=== PATIENT | male | born 1980 | race Caucasian/White ===

== ENCOUNTER 2023-04-06 09:06 | Emergency (ER) | payer OTHER, SELFPAY ==
[2023-04-06 09:08] VITALS: BP 136/78; PULSE 71; RESP 17; RESP 97; TEMP 37.3; O2SAT 97
[2023-04-06] MEDS: DACRIOSE EYE IRRIGATION 118 ML BOTTLE 10 ML EACH EYE (09:15)
[2023-04-06] MEDS: TETRACAINE HCL 0.5% OPHTH SOLN 4 ML BTL 1 DROP EACH EYE (09:15)
[2023-04-06] MEDS: FLUORESCEIN SOD 1 MG/STRIP EACH EYE (09:15)
--- NOTE | 2023-04-06 09:30 | ED.EYEPROB ---
HPI - Eye Problem General Chief complaint: Eye Problems Stated complaint: left eye pain Time Seen by Provider: 04/06/23 09:08 Source: patient Mode of arrival: ambulatory Limitations: no limitations History of Present Illness HPI Narrative: This is a 42-year-old gentleman that presents with left eye irritation with no visual disturbances was welding and felt like a piece of welding material although he was wearing his goggles did penetrate the left, this happened last night and rinsed his eye but still feels like there is a foreign body sensation in the left eye. chief complaint: eye redness and foreign body Onset (ago): day(s) Duration: improved Location: left eye Eye Symptoms: redness and foreign body sensation Place: work Related Data Allergies Allergy/AdvReac Type Severity Reaction Status Date / Time No Known Allergies Allergy Verified 04/06/23 09:08 Review of Systems Review of Systems: All systems reviewed & are unremarkable except as noted in HPI and below PMFSH Past Medical History Medical History Patient denies medical problems Exam Const: General: healthy appearing Nutritional Appearance: well nourished Orientation/consciousness: patient oriented x3 Limitations: no limitations HENMT: Head: normal to inspection Face and sinus: normal facial exam Eyes: Conjunctivae: conjunctival abnormality Pupils: Equal, round and reactive pupils present EOM: EOMs intact bilaterally Direct Ophthalmoscopy: no photophobia Neck: Neck: normal visual inspection Resp: Effort & Inspection: normal respiratory effort Cardio: Rate: regular rate Rhythm: regular rhythm GI: Auscultation: normal bowel sounds Urinary Catheter: Urinary Catheter: patent and draining Skin: General skin exam: normal color Rashes: no rashes Neuro: General: patient oriented x3 Cranial nerves: Yes Nystagmus not present Extrem: General: normal to inspection Psych: Mental Status: mental status grossly normal Course Course Emergency Course: tetracaine was used to numb the left eye and cotton swab I used to thoroughly sweep the inner upper and lower eyelid magnifying lens was used to visualize the eye and no foreign object was visualized. Dextrose some was used to flush the the I and forcing stain was used and there was no foreign object or corneal abrasions visualized. The patient tolerated procedure well and will instill antibiotic eye drop to the left eye. Vital Signs Vital signs: Vital Signs Temperature 37.3 C 04/06/23 09:08 Pulse Rate 71 04/06/23 09:08 Respiratory Rate 17 04/06/23 09:08 Blood Pressure 136/78 04/06/23 09:08 Pulse Oximetry 97 04/06/23 09:08 Oxygen Delivery Room Air 04/06/23 09:08 Temperature 37.3 C 04/06/23 09:08 Pulse Rate 71 04/06/23 09:08 Respiratory Rate 17 04/06/23 09:08 Blood Pressure 136/78 04/06/23 09:08 Pulse Oximetry 97 04/06/23 09:08 Oxygen Delivery Room Air 04/06/23 09:08 Procedures FB Removal Eye Foreign Body #1: Foreign Body Removal Date: 04/06/23 Foreign Body Removal Time: 09:36 Time Out performed: Yes Location: eye (L) Topical anesthetic used: tetracaine Foreign body: other ( No foreign object visualized) Evidence of corneal penetration: No Technique: irrigation, eye wash bottle and cotton tip swab Procedure performed under: direct visualization with magnification Post-procedure medication: ophthalmic antibiotic Patient tolerated procedure: well Foreign Body Removal Narrative: no foreign objects or corneal abrasions visualized Critical Care Time Critical Care Time Critical Care Time: No Discharge Plan Discharge Clinical Impression: Bacterial conjunctivitis Patient Disposition: Home, Self-Care Condition: Stable Instructions: Antibiotic Form, Eye Foreign Body (ED), Conjunctivitis (ED) Additiona
[2023-04-06] MEDS: TETANUS,DIPHTHERIA,AC PERTUSSIS ADULT 0.5 ML (ADACEL) IM (09:43)
[2023-04-06] MEDS: NEOMYCIN/POLYMYXIN/HYDROCORT 7.5 ML EYE DROPS (*BKC) 1 DROP LEFT EYE (09:44)
[2023-04-06 09:49] VITALS: BP 136/78; PULSE 71; RESP 17; TEMP 37.3; O2SAT 97
== END 2023-04-06 09:51 | disposition home or self-care (01) ==
PROVIDERS: Emergency Provider Emergency Medicine
DX: H10.9 Unspecified conjunctivitis (principal); Z23 Encounter for immunization
CPT/HCPCS: 90471; 90715; 99283; A9270

== ENCOUNTER 2024-04-04 01:25 | Emergency (ER) | payer OTHER, SELFPAY ==
[2024-04-04 01:27] VITALS: BP 136/91; PULSE 84; RESP 18; TEMP 36.2; O2SAT 100
--- NOTE | 2024-04-04 01:33 | ED.GENADULT ---
HPI - General Adult General Chief complaint: Allergic Reaction Stated complaint: eye issue History of Present Illness HPI narrative: This is a 43-year-old male presenting with allergic reaction. Patient was out cutting grass and for lid earlier today. He developed some itching over the top of his right arm with some mild erythema. He then took a nap woke up with periorbital edema on the right. No eye pain changes in vision or irritation. Patient has no nausea vomiting diarrhea. No wheezing. No globus sensation or significant wheals/urticaria. Related Data Allergies Allergy/AdvReac Type Severity Reaction Status Date / Time No Known Allergies Allergy Verified 04/04/24 01:32 [facility] Past Medical History Medical History Patient denies medical problems Exam Narrative: APPEARANCE: No apparent distress. Head: atraumatic. EYES: Periorbital edema without significant erythema on the right. Conjunctiva normal. Pupils EDUIN NOSE: Atraumatic NECK: Trachea midline RESPIRATORY: No increased rate of breathing, CTAB CARDIOVASCULAR: RRR, ABDOMINAL: Non-distended MUSCULOSKELETAl: No obvious deformities NEURO: Alert. Moving 4/4 extremities SKIN:: mild area of erythema over the right upper extremity without urticaria or wheals. PSYCHIATRIC: Normal affect Course Vital Signs Vital signs: Vital Signs Temperature 97.2 F L 04/04/24 01:27 Pulse Rate 84 04/04/24 01:27 Respiratory Rate 18 04/04/24 01:27 Blood Pressure 136/91 H 04/04/24 01:27 Pulse Oximetry 100 04/04/24 01:27 Oxygen Delivery Room Air 04/04/24 01:27 Temperature 97.2 F L 04/04/24 01:27 Pulse Rate 84 04/04/24 01:27 Respiratory Rate 18 04/04/24 01:27 Blood Pressure 136/91 H 04/04/24 01:27 Pulse Oximetry 100 04/04/24 01:27 Oxygen Delivery Room Air 04/04/24 01:27 Medical Decision Making [facility] Narrative Medical decision making narrative: -Course: 43-year-old male presenting with itching over his arm and right periorbital edema. No evidence of infection to suggest cellulitis. No systemic signs of anaphylaxis. He did have some plant exposure earlier today but typically poison celeste has a longer course and does not present with acute swelling of this nature. Patient will be treated for allergic reaction with dexamethasone Pepcid and Benadryl. Given an ice pack for the swelling in his eye. primary care follow-up return precautions given. If the patient develops pathognomonic rash or blisters of poison celeste he should return to a primary care physician or ED to get a 3 week course of steroids. -DDX includes but is not limited to: Allergic reaction, urushiol exposure, preseptal cellulitis -Interventions: dexamethasone, Benadryl, Pepcid -Shared decision making / Disposition: discharge -RX prednisone 50mg qd x 5days Vital Signs Vital Signs: Vital Signs Temperature 97.2 F L 04/04/24 01:27 Pulse Rate 84 04/04/24 01:27 Respiratory Rate 18 04/04/24 01:27 Blood Pressure 136/91 H 04/04/24 01:27 Pulse Oximetry 100 04/04/24 01:27 Oxygen Delivery Room Air 04/04/24 01:27 Temperature 97.2 F L 04/04/24 01:27 Pulse Rate 84 04/04/24 01:27 Respiratory Rate 18 04/04/24 01:27 Blood Pressure 136/91 H 04/04/24 01:27 Pulse Oximetry 100 04/04/24 01:27 Oxygen Delivery Room Air 04/04/24 01:27 Discharge Plan Discharge Clinical Impression: Allergic reaction Patient Disposition: Home, Self-Care Condition: Stable Instructions: Antibiotic Form, General Allergic Reaction (ED) Additional Instructions: Please take medications as instructed. Please follow-up your primary care physician as needed. If the swelling is getting worse, you develop difficulty breathing nausea vomiting diarrhea or signs of infection please return emergency department for reevaluation. If you develop a rash that is consistent with poison celeste please r
[2024-04-04] MEDS: dexAMETHasone SOD PHOS INJ 10 MG/ML 1 ML VIAL IM (01:42)
[2024-04-04] MEDS: FAMOTIDINE 20 MG TABLET 40 MG PO (01:43)
[2024-04-04] MEDS: diphenhydrAMINE HCl CAP 25 MG CAPSULE 50 MG PO (01:43)
== END 2024-04-04 01:46 | disposition home or self-care (01) ==
PROVIDERS: Emergency Provider Emergency Medicine
DX: T78.40XA Allergy, unspecified, initial encounter (principal); X58.XXXA Exposure to other specified factors, initial encounter
CPT/HCPCS: 96372; 99283; A9270; J1100